=== PATIENT | male | born 1985 | race Caucasian/White ===

== ENCOUNTER 2019-02-20 11:35 | Emergency (ER) | payer OTHER ==
[~2019-02-20] VITALS: Ht 172.7 cm; Wt 98.3 kg
[2019-02-20 12:33] LABS: BASO % 0.6 % (0.0-1.0); EOS # 0.1 10^3/uL (0.0-0.5); EOS % 0.9 % (0.0-3.0); HEMATOCRIT 43.9 % (42.0-52.0); HEMOGLOBIN 14.8 g/dl (13.5-17.5); LYMPH # 1.7 10^3/uL (1.5-5.0); MEAN CORPUSCULAR HEMOGLOBIN 30.8 pg (27.0-33.0); MEAN CORPUSCULAR HGB CONC 33.7 g/dl (32.0-36.5); MEAN CORPUSCULAR VOLUME 91.5 fl (80.0-96.0); MONO # 0.6 10^3/uL (0.0-0.8); NEUTROPHILS # 4.4 10^3/uL (1.5-8.5); NEUTROPHILS % 63.9 % (36.0-66.0); PLATELET COUNT, AUTOMATED 222 10^3/uL (150-450); WHITE BLOOD COUNT 6.9 10^3/uL (4.0-10.0)
[2019-02-20 13:01] LABS: ALBUMIN 4.1 GM/DL (3.2-5.2); ALT/SGPT 37 U/L (12-78); BILIRUBIN,DIRECT 0.1 MG/DL (0.0-0.2); BILIRUBIN,TOTAL 0.6 MG/DL (0.2-1.0); BLOOD UREA NITROGEN 15 MG/DL (7-18); CALCIUM LEVEL 9.2 MG/DL (8.5-10.1); CARBON DIOXIDE LEVEL 27 MEQ/L (21-32); CHLORIDE LEVEL 106 MEQ/L (98-107); CREATININE FOR GFR 0.86 MG/DL (0.70-1.30); GLOMERULAR FILTRATION RATE > 60.0 (>60); GLUCOSE, FASTING 91 MG/DL (70-100); LIPASE 526 U/L (73-393); POTASSIUM SERUM 4.2 MEQ/L (3.5-5.1); SODIUM LEVEL 142 MEQ/L (136-145); TOTAL PROTEIN 7.5 GM/DL (6.4-8.2)
[2019-02-20] MEDS ORDERED: ISOVUE-370 76% 100ML VIAL (Q9967) As Ordered ONE (13:04)
--- NOTE | 2019-02-20 13:38 | REP ---
CT of the abdomen and pelvis with IV contrast, without bowel contrast: The patient is a history of diverticulitis and complains of left lower quadrant pain. There are no comparison studies. There are multiple diverticula in the descending colon and sigmoid colon compatible with diverticulosis. There is no pericolonic inflammation or abscess to suggest diverticulitis. There is no pneumoperitoneum. There is no ascites. There is no bowel distension or obstruction. The visualized lung lora are unremarkable. The hepatic parenchyma, gallbladder, pancreas, spleen, adrenals, kidneys and abdominal aorta are unremarkable. Pelvis: The appendix is unremarkable. There is no ascites or adenopathy. The bladder is unremarkable. Impression: There is descending colon and sigmoid diverticulosis. There is no CT evidence of diverticulitis. There is no adenopathy, ascites or pneumoperitoneum. Otherwise, negative CT study of the abdomen and pelvis. Electronically Signed by Johann Dorman MD 02/20/2019 01:29 P
[2019-02-20 14:18] VITALS: BP 117/88
== END 2019-02-20 14:20 | disposition home or self-care (01) ==
LOC: M ED 11:35
DX: K52.9 Noninfective gastroenteritis and colitis, unspecified (principal); K57.30 Diverticulosis of large intestine without perforation or abscess without bleeding; K57.32 Diverticulitis of large intestine without perforation or abscess without bleeding
CPT/HCPCS: 36415; 74177; 80048; 80076; 83690; 85025; 99284; Q9967

== ENCOUNTER → 2020-07-30 | Outpatient (CLI) | payer OTHER ==
--- NOTE | 2020-07-30 13:16 | REP ---
INDICATION: THYROID NODULE COMPARISON: None. TECHNIQUE: Carey scale and color evaluation of the thyroid gland using the linear high frequency transducer. FINDINGS: Thyroid gland is diffusely heterogeneous with relatively symmetric vascularity. Right lobe measures 4.9 x 2.0 x 2.0 cm. Left lobe measures 4.8 x 1.9 x 1.7 cm and includes subtle 9 x 7 x 9 mm midpole isoechoic nodule. Isthmus measures 10 mm in width. IMPRESSION: 1. Diffusely heterogeneous thyroid gland should be correlated with thyroid function tests. 2. Vague 9 mm isoechoic nodule in the left lobe suggested. <Electronically signed by Dayo Decker > 07/30/20 1318
== END ==
LOC: M RAD 12:15
PROVIDERS: ATTEND Pediatrics
DX: Z86.39 Personal history of other endocrine, nutritional and metabolic disease (principal)

== ENCOUNTER 2021-04-15 06:37 | Emergency (ER) | payer OTHER ==
[~2021-04-15] VITALS: Ht 177.8 cm; Wt 118.0 kg
[2021-04-15 06:39] VITALS: BP 135/87
--- OUTSIDE RECORDS SUMMARY | 2021-04-15 06:52 | CCD ---
Author Author [facility] Organization [facility] Address Unknown Phone Unavailable Care Team Providers Care Hoop Maker Name Role Phone Stefania, Kenya Unavailable Unavailable Stefania, Kenya Unavailable Unavailable Stefania, Kenya Unavailable Unavailable Stefania, Kenya Unavailable Unavailable Stefania, Kenya Unavailable Unavailable Stefania, Kenya Unavailable Unavailable Stefania, Kenya Unavailable Unavailable Stefania, Kenya Unavailable Unavailable Stefania, Kenya Unavailable Unavailable Stefania, Kenya Unavailable Unavailable Stefania, Kenya Unavailable Unavailable Stefania, Kenya Unavailable Unavailable Stefania, Kenya Unavailable Unavailable Stefania, Kenya Unavailable Unavailable Stefania, Kenya Unavailable Unavailable Stefania, Kenya Unavailable Unavailable Stefania, Kenya Unavailable Unavailable Stefania, Kenya Unavailable Unavailable Stefania, Kenya Unavailable Unavailable Stefania, Kenya Unavailable Unavailable Setfania, Kenya Unavailable Unavailable Stefania, Kenya Unavailable Unavailable Stefania, Kenya Unavailable Unavailable Stefania, Kenya Unavailable Unavailable Stefania, Kenya Unavailable Unavailable Stefania, Kenya Unavailable Unavailable Stefania, Kenya Unavailable Unavailable Diaz Ricci PA-C Unavailable Diaz Ricci-C Unavailable Diaz Ricci PA-C Unavailable Diaz Ricci PA-C Unavailable Diaz Ricci PA-C Unavailable NEEDED NEEDED, INFO Unavailable Unavailable Holley, W Herve RPA-C Unavailable Unavailable Holley, W Herve RPA-C Unavailable Unavailable Holley, W Herve RPA-C Unavailable Unavailable Holley, W Herve RPA-C Unavailable Unavailable Holley, W Herve RPA-C Unavailable Unavailable Holley, W Herve RPA-C Unavailable Unavailable Holley, W Herve RPA-C Unavailable Unavailable Holley, W Herve RPA-C Unavailable Unavailable Holley, W Herve RPA-C Unavailable Unavailable Holley, W Herve RPA-C Unavailable Unavailable Holley, W Herve RPA-C Unavailable Unavailable Holley, W Herve RPA-C Unavailable Unavailable Holley, W Herve RPA-C Unavailable Unavailable Holley, W Herve RPA-C Unavailable Unavailable Holley, W Herve RPA-C Unavailable Unavailable Holley, W Herve RPA-C Unavailable Unavailable Holley, W Herve RPA-C Unavailable Unavailable ISAIAH, DONNIE COURTNEY PA Unavailable Unavailable ISAIAH, DONNIE COURTNEY PA Unavailable Unavailable ISAIAH, DONNIE COURTNEY PA Unavailable Unavailable ISAIAH, DONNIE COURTNEY PA Unavailable Unavailable ISAIAH, DONNIE COURTNEY PA Unavailable Unavailable ISAIAH, DONNIE COURTNEY PA Unavailable Unavailable ISAIAH, DONNIE COURTNEY PA Unavailable Unavailable ISAIAH, DONNIE COURTNEY PA Unavailable Unavailable ISAIAH, DONNIE COURTNEY PA Unavailable Unavailable ISAIAH, DONNIE COURTNEY PA Unavailable Unavailable ISAIAH, DONNIE COURTNEY PA Unavailable Unavailable ISAIAH, DONNIE COURTNEY PA Unavailable Unavailable ISAIAH, DONNIE COURTNEY PA Unavailable Unavailable ISAIAH, DONNIE COURTNEY PA Unavailable Unavailable ISAIAH, DONNIE COURTNEY PA Unavailable Unavailable ISAIAH, DONNIE COURTNEY PA Unavailable Unavailable ISAIAH, DONNIE COURTNEY PA Unavailable Unavailable ISAIAH, DONNIE COURTNEY PA Unavailable Unavailable ISAIAH, DONNIE COURTNEY PA Unavailable Unavailable ISAIAH, DONNIE COURTNEY PA Unavailable Unavailable ISAIAH, DONNIE COURTNEY PA Unavailable Unavailable ISAIAH, DONNIE COURTNEY PA Unavailable Unavailable Re-disclosure Warning The records that you are about to access may contain information from federally-assisted alcohol or drug abuse programs. If such information is present, then the following federally mandated warning applies: This information has been disclosed to you from records protected by federal confidentiality rules (42 CFR part 2). The federal rules prohibit you from making any further disclosure of this information unless further disclosure is expressly permitted by the written consent of the person to whom it pertains or as otherwise permitted by 42 CFR part 2. A general authorization for the release of medical or other information is NOT sufficient for this purpose. The Federal rules restrict any use of the information to criminally investigate or prosecute any alcohol or drug abuse patient.The records that you are about to access may contain highly sensitive health information, the redisclosure of which is protected by Article 27-F of the [facility] Public Health law. If you continue you may have access to information: Regarding HIV / AIDS; Provided by facilities licensed or operated by the [facility] Office of Mental Health; or Provided by the [facility] Office for People With Developmental Disabilities. If such information is present, then the following [facility] mandated warning applies: This information has been disclosed to you from confidential records which are protected by state law. State law prohibits you from making any further disclosure of this information without the specific written consent of the person to whom it pertains, or as otherwise permitted by law. Any unauthorized further disclosure in violation of state law may result in a fine or residential sentence or both. A general authorization for the release of medical or other information is NOT sufficient authorization for further disc losure. Encounters Encounter Providers Location Date Indications Data Source(s ) Emergency Attender: Diaz Ricci PA-C 04/07/2021 09:58:00 A [facility] Emergency Attender: Diaz Ricci PA-C 2020 06:50:00 AM EDT - 09/30/2020 07:00:00 AM [facility] Patient discharged. Denise Aguiar MD: [address] [place] [address], Ph. Attender: Denise Aguiar [facility] 07/28/2020 12:00:00 AM EST LAZ ([facility]) Denise Aguiar MD: [address] [place] [address], Ph. Attender: Denise Aguiar [facility] 07/28/2020 12:00:00 AM EST LAZ ([facility]) Outpatient Attender: Denise AguiarAttender: JEREMY ADORNO NEEDED EMERGENCY ROOM-[facility] 07/10/2020 07:26:00 AM [facility] 07/10/2020 07:26:00 AM [facility] Denise Aguiar MD: [address], [facility] [place] [address], Ph. Attender: Denise Aguiar [facility] [place]/07/2020 12:00:00 AM EST LAZ ([facility]) Denise Aguiar MD: [address], [place] [place] [address], Ph. Attender: [place]uiar [facility] [place]/07/2020 12:00:00 AM EST [place] ([facility]) Denise Aguiar MD: [address], [place] [address], Ph. Attender: Denise Aguiar [facility] 07/07/2020 12:00:00 AM EST LAZ ([facility]) Denise Aguiar MD: [address], [facility] [place] [address], Ph. Attender: Denise Aguiar [facility] 07/07/2020 12:00:00 AM EST LAZ ([facility]) Emergency Attender: Herve MENDEZ EMERGENCY ROOM-ER 0 01/27/2018 04:22:00 PM EDT - 01/27/2018 09:17:00 PM [facility] Emergency Attender: COURTNEY ISABEL 06:58:00 PM EDT - 12/31/2016 06:58:00 PM [facility] Medications Medication Brand Name Start Date Product Form Dose Route Admi nistrative Instructions Pharmacy Instructions Status Indications Reaction Description Data Source(s) Amoxicillin 875 MG / Clavulanate 125 MG Oral Tablet 87 5-125 mg AMOXICILLIN/POTASSIUM CLAV 09/30/2020 12:00:00 AM EDT tablet 20 TAKE ONE TABLET BY MOUTH TWICE A DAY TAKE ONE TABLET BY MOUTH TWICE A DAY SOLD: 10/01/2020 [facility] atorvastatin 20 MG Oral Tablet ATORVASTATIN CALCIUM 07/28/2020 1 2:00:00 AM EST tablet 30 TAKE ONE TABLET BY MOUTH EVERY D AY TAKE ONE TABLET BY MOUTH EVERY DAY SOLD: 08/04/2020 [facility] atorvastatin 20 MG Oral Tablet ATORVASTATIN CALCIUM 07/28/2020 1 2:00:00 AM EST tablet 30 TAKE ONE TABLET BY MOUTH EVERY D AY TAKE ONE TABLET BY MOUTH EVERY DAY SOLD: 10/06/2020 [facility] 50 mcg 07/28/2020 12:00:00 AM EST tablet 30 TAKE ONE TABLET BY MOUTH EVERY DAY TAKE ONE TABLET BY MOUTH EVERY DAY SOLD: 10/06/2020 [facility] 50 mcg 07/28/2020 12:00:00 AM EST tablet 30 TAKE ONE TABLET BY MOUTH EVERY DAY TAKE ONE TABLET BY MOUTH EVERY DAY SOLD: 08/04/2020 [facility] Insurance Providers Payer name Policy type / Coverage type Policy ID Covered green party ID Covered green party's relationship to morejon Policy Morejon Plan Information RAEANN [id number] SP [id number] RAEANN CARE MEDICAID [id number] S [id number] SELF PAY UNAVAILABLE S UNAVAILA BLE RAEANN CARE MEDICAID [id number] S [id number] Managed Care [place] P [id number] S [id number] Medicaid S [id number] S [id number] Managed Care [place] P UNAVAILABLE S UNAVAILABLE AREANN CARE [facility] [id number] S [id number] RAEANN [id number] SP [id number] SELF-PAY UNAVAILABLE S UNAVAILA BLE Problems, Conditions, and Diagnoses Code Display Name Description Problem Type Effective Dates Data Source(s) Y93.89 Activity, other specified ACTIVITY, OTHER SPECIFIED Di agnosis 09/30/2020 06:50:00 AM [facility] Y99.0 Civilian activity done for income or pay CIVILIAN ACTIVITY DONE FOR INCOME OR PAY Diagnosis 09/30/2020 06:50:00 AM [facility] Y92.89 [address] the place of o ccurrence of the external cause OTH PLACES THE PLACE OF OCCURRENCE OF THE EXTER Diagnosis 10/2020 06:50:00 AM [facility] W26.8XXA CONTACT WITH OTHER SHARP OBJECT(S), NEC, INITIAL E CONTACT WITH OTHER SHARP OBJECT(S), NEC, INITIAL E Diagnosis 09/30/2020 06:50:00 AM [facility] F17.210 Nicotine dependence, cigarettes, uncompl icated NICOTINE DEPENDENCE, CIGARETTES, UNCOMPLICATED Diagnosis 09/30/2020 06:50:00 AM 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 NON-CELIAC GLUTEN SENSIT IVITY Diagnosis 07/10/2020 07:26:00 AM [facility] [id number] Tobacco user Tobacco User Problem 07/28/2020 12:00:00 A M [facility]) [id number] Hyperlipidemia Hyperlipidemia Problem 07/28/2020 12:00: 00 AM [facility]) [id number] Tobacco user Tobacco User Problem 07/28/2020 12:00:00 A M [facility]) [id number] Hyperlipidemia Hyperlipidemia Problem 07/28/2020 12:00: 00 AM [facility]) [id number] Right side sciatica Right Side Sciatica Problem 07/07/2020 12:00:00 AM [facility]) [id number] Gluten sensitivity Gluten Sensitivity Problem 02/2021 12:00:00 AM [facility] er) [id number] Disorder of thyroid gland Disorder of Thyroid Gland Pr oblem 07/07/2020 12:00:00 AM EST LAZ ([facility] er) [id number] Goiter Goiter Problem 07/07/2020 12:00:00 AM ES Jae LAZ ([facility]) [id number] Right side sciatica Right Side Sciatica Problem 07/07/2020 12:00:00 AM EST LAZ ([facility] er) [id number] Gluten sensitivity Gluten Sensitivity Problem 02/2021 12:00:00 AM EST LAZ ([facility] er) 15715380 Disorder of thyroid gland Disorder of Thyroid Gland Pr oblem 07/07/2020 12:00:00 AM EST LAZ ([facility] er) [id number] Goiter Goiter Problem 07/07/2020 12:00:00 AM ES T LAZ ([facility]) [id number] Right side sciatica Right Side Sciatica Problem 07/07/2020 12:00:00 AM EST LAZ ([facility] er) 093927490 Gluten sensitivity Gluten Sensitivity Problem 02/2021 12:00:00 AM EST LAZ ([facility] er) [id number] Disorder of thyroid gland Disorder of Thyroid Gland Pr oblem 07/07/2020 12:00:00 AM EST LAZ ([facility] er) 4014145 Goiter Goiter Problem 07/07/2020 12:00:00 AM TIGRE Rowe LAZ ([facility]) [id number] Right side sciatica Right Side Sciatica Problem 07/07/2020 12:00:00 AM EST LAZ ([facility] er) [id number] Gluten sensitivity Gluten Sensitivity Problem 02/2021 12:00:00 AM EST LAZ ([facility] er) [id number] Disorder of thyroid gland Disorder of Thyroid Gland Pr oblem 07/07/2020 12:00:00 AM EST LAZ ([facility] er) [id number] Goiter Goiter Problem 07/07/2020 12:00:00 AM ES Jae LAZ ([facility]) Surgeries/Procedures No Information Results ID Date Data Source [id number] 10/02/2020 09:39:00 AM EDT [facility] Patient: GLENROY COYLE [facility]VisitID: [id number] [place] [address] [phone], MRegistration Date/Time: 09/30/2020 06:32 Weight:104.3 kg (S). Height/Length:69 inches (S). BMI:34 PAST HISTORYProblems:Diverticulitis. Additional Surgeries:no known surgeries. Medications:None. Allergies:No Known Drug Allergy. FAMILY HISTORYNegative. No significant family medical history. (Electronically signed by Carmen Pan 10/02/2020 09:34) Name Value Range Interpretation Code Description Data Sherin rce(s) Supporting Document(s) ID Date Data Source [id number] 07/16/2020 06:05:00 PM EST [facility] Name Value Range Interpretation Code Description Data Sherin rce(s) Supporting Document(s) Endomysial Antibody IgA Negative Negative [facility] t-Transglutaminase (tTG) IgA 0-3 [facility] Negative 0 - 3 Weak Positive 4 - 10 Positive >10 Tissue Transglutaminase (tTG) has been identified as the endomysial antigen. Studies have demonstr- ated that endomysial IgA antibodies have over 99% specificity for gluten sensitive enteropathy. Immunoglobulin A, Qn, Serum 304 mg/dL 90-386 [facility] ID Date Data Source [id number] 07/12/2020 06:09:00 PM EST [facility] Name Value Range Interpretation Code Description Data Sherin rce(s) Supporting Document(s) T-TRANSGLUTAMINASE (TTG) IGA <2 U/mL 0-3 R [facility] Negative 0 - 3 Weak Positive 4 - 10 Positive >10 Tissue Transglutaminase (tTG) has been identified as the endomysial antigen. Studies have demonstr- ated that endomysial IgA antibodies have over 99% specificity for gluten sensitive enteropathy. ENDOMYSIAL ANTIBODY IGA Negative Negative [facility] IMMUNOGLOBULIN A, QN, SERUM 304 mg/dL 90-386 [facility] Performed at: RN - [facility] [address] [id number] Director: Shelby Beyer MD, Phone: [phone] ID Date Data Source [id number] 07/10/2020 10:12:00 AM EST [facility] FA[facility] [phone] Name Value Range Interpretation Code Description Data Sherin rce(s) Supporting Document(s) TSH 7.123 uIU/mL 0.360-3.740 H [facility] ID Date Data Source [id number] 07/10/2020 08:21:00 AM EST [facility] [phone] Name Value Range Interpretation Code Description Data Sherin rce(s) Supporting Document(s) CHOLESTEROL 207 mg/dL 0-200 H [facility] TRIGLYCERIDES 24 mg/dL 0-150 [facility] LDL CHOLESTEROL 157 mg/dL 0-100 H [facility] HDL CHOLESTEROL 45 mg/dL 40-60 [facility] CHOL/HDL RATIO 4.6 0.0-5.0 [facility] ID Date Data Source [id number] 07/10/2020 08:21:00 AM [facility] FAX [phone] Name Value Range Interpretation Code Description Data [facility] rce(s) Supporting Document(s) GLUCOSE 102 mg/dL 74-106 [facility] BLOOD UREA NITROGEN 24 mg/dL 7-18 H [facility] ital CREATININE 0.76 mg/dL 0.7-1.3 [facility] SODIUM 138 mmol/L 136-145 [facility] POTASSIUM 4.9 mmol/L 3.5-5.1 [facility] CHLORIDE 103 mmol/L 98-107 [facility] CO2 30 mmol/L 21-32 [facility] CALCIUM 9.1 mg/dL 8.5-10.1 [facility] ANION GAP 5.0 mmol/L 5-12 [facility] GLOMERULAR FILTRATION RATE >90 mL/min [facility] GFR IS CALCULATED IN mL/min/1.73m2 GLADYS L FUNCTION: >90MILDLY DECREASED: 60-89MILDY TO MODERATELY DECREASED: 45-59 MODERATELY TO SEVERELY DECREASED: 30-44SEVERELY DECREASED: 15-29RENAL FAILURE: <15 AST 30 U/L 15-37 [facility] ALT 47 U/L 12-78 [facility] ALKALINE PHOSPHATASE 56 U/L 46-116 [facility] pital TOTAL BILIRUBIN 0.4 mg/dL 0.2-1.0 [facility] TOTAL PROTEIN 7.5 g/dl 6.4-8.2 [facility] ALBUMIN 4.1 gm/dL 3.4-5.0 [facility] ID Date Data Source [id number] 07/10/2020 07:59:00 AM EST [facility] FAX [phone] Name Value Range Interpretation Code Description Data Sherin rce(s) Supporting Document(s) WHITE BLOOD COUNT 4.7 K/mm3 4.0-10.[address] [facility] al RED BLOOD COUNT 4.65 M/mm3 4.50-6.00 [facility] HEMOGLOBIN 14.0 gm/dL 14.0-18.0 [facility] HEMATOCRIT 41.1 % 42.0-54.0 L [facility] MEAN CELL VOLUME 88.4 fl 80-96 [facility] MEAN CORPUSCULAR HEMOGLOBIN 30.1 pg 27.0-31.0 [facility] MEAN CORPUSCULAR HGB CONC 34.1 g/dl 32.0-36.0 [facility] RED CELL DISTRIBUTION WIDTH 12.6 % 10.0-14.5 [facility] PLATELET COUNT 218 K/mm3 172-450 [facility] MEAN PLATELET VOLUME 8.8 fl 9.0-13.0 L [facility] pital GRAN % 54.8 % 50-80.0 [facility] IG% 0.2 % 0.0-0.2 [facility] LYMPH % 35.0 % 25.0-50.0 [facility] MONO % 8.3 % 2.0-10.0 [facility] EOS % 1.1 % 0-5.0 [facility] BASO % 0.6 % 0.0-2.0 [facility] GRAN # 2.6 K/mm3 2.0-8.00 [facility] IG# 0.0 K/mm3 0.0-0.2 [facility] LYMPH # 1.7 K/mm3 1.0-5.0 [facility] MONO # 0.4 K/mm3 0.10-1.20 [facility] EOS # 0.1 K/mm3 0.0-0.5 [facility] BASO # 0.0 K/mm3 0.0-0.2 [facility] Procedure Social History No Information Vital Signs ID Date Data Source UNK Name Value Range Interpretation Code Description Data Source(s) Diastolic blood pressure 87 mm[Hg] 87 mm[Hg] LAZ ([facility]) Body height 69 [in_i] 69 [in_i] LAZ ([facility]) Body mass index (BMI) [Ratio] 33 kg/m2 33 kg/ m2 LAZ ([facility]) Systolic blood pressure 147 mm[Hg] 147 mm[Hg] A JASMIN ([facility]) Body weight 3571 [oz_av] 3571 [oz_av] LAZ ([facility]) Diastolic blood pressure 87 mm[Hg] 87 mm[Hg] LAZ ([facility]) Body height 69 [in_i] 69 [in_i] LAZ ([facility]) Body mass index (BMI) [Ratio] 33 kg/m2 33 kg/ m2 LAZ ([facility]) Systolic blood pressure 147 mm[Hg] 147 mm[Hg] A JASMIN ([facility]) Body weight 3571 [oz_av] 3571 [oz_av] LAZ ([facility]) Diastolic blood pressure 70 mm[Hg] 70 mm[Hg] LAZ ([facility]) Body height 69 [in_i] 69 [in_i] LAZ ([facility]) Body mass index (BMI) [Ratio] 32.8 kg/m2 32.8 k g/m2 LAZ ([facility]) Systolic blood pressure 117 mm[Hg] 117 mm[Hg] A JASMIN ([facility]) Body weight 3555.2 [oz_av] 3555.2 [oz_av] ATHEN A ([facility]) Diastolic blood pressure 70 mm[Hg] 70 mm[Hg] LAZ ([facility]) Body height 69 [in_i] 69 [in_i] LAZ ([facility]) Body mass index (BMI) [Ratio] 32.8 kg/m2 32.8 k g/m2 LAZ ([facility]) Systolic blood pressure 117 mm[Hg] 117 mm[Hg] A SANGA ([facility]) Body weight 3555.2 [oz_av] 3555.2 [oz_av] ATHEN A ([facility]) Diastolic blood pressure 70 mm[Hg] 70 mm[Hg] LAZ ([facility]) Body height 69 [in_i] 69 [in_i] LAZ ([facility]) Body mass index (BMI) [Ratio] 32.8 kg/m2 32.8 k g/m2 LAZ ([facility]) Systolic blood pressure 117 mm[Hg] 117 mm[Hg] [facility] Body weight 3555.2 [oz_av] 3555.2 [oz_av] ATHRODRIGO A ([facility]) Body weight 3555.2 [oz_av] 3555.2 [oz_av] ATHEN A ([facility]) Diastolic blood pressure 70 mm[Hg] 70 mm[Hg] LAZ ([facility]) Body height 69 [in_i] 69 [in_i] LAZ ([facility]) Body mass index (BMI) [Ratio] 32.8 kg/m2 32.8 k g/m2 LAZ ([facility]) Systolic blood pressure 117 mm[Hg] 117 mm[Hg] A SANG ([facility])
--- OUTSIDE RECORDS SUMMARY | 2021-04-15 08:26 | CCD ---
Author Author [facility] Organization [facility] Address Unknown Phone Unavailable Care Team Providers Care Endoscopy Support Specialist Name Role Phone Stefania, [place] Unavailable Unavailable [...] Ricci PA-C Unavailable Diaz Ricci PA-C Unavailable INFO NEEDED, INFO Unavailable Unavailable Holley, W Herve [...] is protected by Article 27-F of the [facility] Public Health law. If you continue you may have access to information: Regarding HIV / AIDS; Provided by facilities licensed or operated by the [facility] Office of Mental Health; or Provided by the [facility] Office for People With Developmental Disabilities. If such information is present, then the following [facility] mandated warning applies: This information has been [...] law may result in a fine or snf sentence or both. A general authorization for the release of medical or other information is NOT sufficient authorization for further disc losure. Encounters Encounter Providers Location Date Indications Data Source(s ) Emergency Attender: Diaz Ricci PA-C 04/07/2021 09:58:00 A [facility] Emergency Attender: Diaz Ricci PA-C 2020 06:50:00 AM EDT - 09/30/2020 07:00:00 AM [facility] Patient discharged. Denise Aguiar MD: [address] [place] [address], Ph. Attender: Denise Aguiar [facility] Medical 07/28/2020 12:00:00 AM EST LAZ ([facility]) Denise Aguiar MD: [address] [place] [address], Ph. Attender: Denise Aguiar [facility] Medical 07/28/2020 12:00:00 AM EST LAZ ([facility]) Outpatient Attender: Denise AguiarAttender: INFO I NFO NEEDED EMERGENCY ROOM-[facility] 07/10/2020 07:26:00 AM [facility] 07/10/2020 07:26:00 AM [facility] Denise Aguiar MD: [address], [place] [facility] [place] [address], Ph. Attender: Denise Aguiar [facility] 07/07/2020 12:00:00 AM EST LAZ ([facility]) Denise Aguiar MD: [address], [facility] [facility] [place] [address], Ph. Attender: Denise Aguiar [facility] 07/07/2020 12:00:00 AM EST MORSE ([facility]) Denise Aguiar MD: [address], [place] [facility] [place] [address], Ph. Attender: Denise Aguiar [facility] 07/07/2020 12:00:00 AM EST LAZ ([facility]) Denise Aguiar MD: [address], [place] [address], Ph. Attender: Denise Aguiar [facility] 07/07/2020 12:00:00 AM EST [place] ([facility]) Emergency Attender: Herve MENDEZ EMERGENCY ROOM-ER 0 01/27/2018 04:22:00 PM EDT - 01/27/2018 09:17:00 PM [facility] Emergency Attender: COURTNEY ISABEL 06:58:00 PM EDT - 12/31/2016 06:58:00 PM [facility] Medications Medication Brand Name Start Date [...] type / Coverage type Policy ID Covered democrat ID Covered democrat's relationship to morejon Policy [place] Plan Information RAEANN [id number] SP [id number] RAEANN CARE MEDICAID [id number] S [id number] SELF PAY UNAVAILABLE S UNAVAILA BLE RAEANN CARE MEDICAID [id number] S [id number] Managed Care [place] P [id number] S [id number] Medicaid S [id number] S [id number] Managed [facility] [place] P UNAVAILABLE S UNAVAILABLE [facility]AEANN CARE [facility] [id number] S [id number] RAEANN [id number] SP [id number] SELF-PAY UNAVAILABLE S UNAVAILA BLE Problems, Conditions, and Diagnoses Code Display Name Description Problem Type Effective Dates Data Source(s) Y93.89 Activity, other specified ACTIVITY, OTHER SPECIFIED Di agnosis 09/30/2020 06:50:00 AM [facility] Y99.0 Civilian activity done for income or pay CIVILIAN ACTIVITY DONE FOR INCOME OR PAY Diagnosis 09/30/2020 06:50:00 AM [facility] Y92.[address] the place of o ccurrence of the external cause OTH PLACES THE PLACE OF OCCURRENCE OF THE EXTER Diagnosis 10/2020 06:50:00 AM [facility] W26.8XXA CONTACT WITH OTHER SHARP OBJECT(S), NEC, INITIAL E CONTACT WITH OTHER SHARP OBJECT(S), NEC, INITIAL E Diagnosis 09/30/2020 06:50:00 AM [facility] F17.210 Nicotine dependence, cigarettes, uncompl icated NICOTINE DEPENDENCE, CIGARETTES, UNCOMPLICATED Diagnosis 09/30/2020 06:50:00 AM [facility] ospital S91.115A Laceration without foreign b tomás of left lesser toe(s) without damage to nail, initial encounter LAC W/O FB OF LEFT LESSER TOE(S) W/O DAMAGE TO JENNIFER Diagnosis 09/30/2020 06:50:00 AM [facility] S99.922A Unspecified injury of left foot, initial encounter UNSPECIFIED INJURY OF LEFT FOOT, INITIAL ENCOUNTER Diagnosis 09/30/2020 06:50:00 AM [facility] Z13.220 Encounter for screening for lipoid disor ders ENCOUNTER FOR SCREENING FOR LIPOID DISOR Diagnosis 07/10/2020 07:26:00 AM [facility] 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 NON-CELIAC GLUTEN SENSIT IVITY Diagnosis 07/10/2020 07:26:00 AM [facility] [id number] Tobacco user Tobacco User Problem 07/28/2020 12:00:00 A M [facility]) [id number] Hyperlipidemia Hyperlipidemia Problem 07/28/2020 12:00: 00 AM [facility]) [id number] Tobacco user Tobacco User Problem 07/28/2020 12:00:00 A M [facility]) [id number] Hyperlipidemia Hyperlipidemia Problem 07/28/2020 12:00: 00 AM [facility]) [id number] Right side sciatica Right Side Sciatica Problem 07/07/2020 12:00:00 AM [facility] er) [id number] Gluten sensitivity Gluten Sensitivity Problem 02/2021 12:00:00 AM [facility] er) 64406517 Disorder of thyroid gland Disorder of Thyroid Gland Pr oblem 07/07/2020 12:00:00 AM EST LAZ ([facility] er) 1470089 Goiter Goiter Problem 07/07/2020 12:00:00 AM ES Jae LAZ ([facility]) [id number] Right side sciatica Right Side Sciatica Problem 07/07/2020 12:00:00 AM EST LAZ ([facility] er) [id number] Gluten sensitivity Gluten Sensitivity Problem 02/2021 12:00:00 AM EST LAZ ([facility] er) 36414890 Disorder of thyroid gland Disorder of Thyroid Gland Pr oblem 07/07/2020 12:00:00 AM EST LAZ ([facility] er) 5370642 Goiter Goiter Problem 07/07/2020 12:00:00 AM ES T LAZ ([facility]) [id number] Right side sciatica Right Side Sciatica Problem 07/07/2020 12:00:00 AM EST LAZ ([facility] er) 282142312 Gluten sensitivity Gluten Sensitivity Problem 02/2021 12:00:00 AM EST LAZ ([facility] er) 45072460 Disorder of thyroid gland Disorder of Thyroid Gland Pr oblem 07/07/2020 12:00:00 AM EST LAZ ([facility] er) 1299193 Goiter Goiter Problem 07/07/2020 12:00:00 AM TIGRE Rowe LAZ ([facility]) [id number] Right side sciatica Right Side Sciatica Problem 07/07/2020 12:00:00 AM EST LAZ ([facility] er) [id number] Gluten sensitivity Gluten Sensitivity Problem 02/2021 12:00:00 AM EST LAZ ([facility] er) 00185062 Disorder of thyroid gland Disorder of Thyroid Gland Pr oblem 07/07/2020 12:00:00 AM EST LAZ ([facility] er) 5378717 Goiter Goiter Problem 07/07/2020 12:00:00 AM ES Jae LAZ ([facility]) Surgeries/Procedures No Information Results ID Date Data Source [id number] 10/02/2020 09:39:00 AM EDT [facility] Patient: GLENROY COYLE [facility].VisitID: [id number] [place] [address] [phone], MRegistration Date/Time: 09/30/2020 06:32 Weight:104.3 kg (S). Height/Length:69 inches (S). BMI:34 PAST HISTORYProblems:Diverticulitis. Additional Surgeries:no known surgeries. Medications:None. Allergies:No Known Drug Allergy. FAMILY HISTORYNegative. No significant family medical history. (Electronically signed by Carmen Pan 10/02/2020 09:34) Name Value Range Interpretation Code Description Data Sherin rce(s) Supporting Document(s) ID Date Data Source [id number] 07/16/2020 06:05:00 PM EST [facility] Name Value [...] [id number] [facility] ID Date Data Source [id number] 07/12/2020 06:09:00 PM EST [facility] Name Value Range Interpretation Code Description Data Sherin rce(s) Supporting Document(s) T-TRANSGLUTAMINASE (TTG) IGA <2 U/mL 0-3 R [facility] Negative 0 - 3 Weak Positive 4 - 10 Positive >10 Tissue Transglutaminase (tTG) has been identified as the endomysial antigen. Studies have demonstr- ated that endomysial IgA antibodies have over 99% specificity for gluten sensitive enteropathy. ENDOMYSIAL ANTIBODY IGA Negative Negative [facility] IMMUNOGLOBULIN A, QN, SERUM 304 mg/dL 90-386 [facility] Performed at: RN - [facility] [address] [id number] Director: Shelby Beyer MD, Phone: [phone] ID Date Data Source [id number] 07/10/2020 10:12:00 AM EST [facility] FA[facility] [phone] Name Value Range Interpretation Code Description Data Sherin rce(s) Supporting Document(s) TSH 7.123 uIU/mL 0.360-3.[address] [facility] ID Date Data Source [id number] 07/10/2020 08:21:00 AM EST [facility] FAX [phone] Name Value Range Interpretation Code Description Data Sherin rce(s) Supporting Document(s) CHOLESTEROL 207 mg/dL 0-[address] [facility] TRIGLYCERIDES 24 mg/dL 0-150 [facility] LDL CHOLESTEROL 157 mg/dL 0-[address] [facility] HDL CHOLESTEROL 45 mg/dL 40-60 [facility] CHOL/HDL RATIO 4.6 0.0-5.0 [facility] ID Date Data Source [id number] 07/10/2020 08:21:00 AM [facility] FA[facility] [phone] Name Value Range Interpretation Code Description Data [facility] rce(s) Supporting Document(s) GLUCOSE 102 mg/dL 74-106 [facility] BLOOD UREA NITROGEN 24 mg/dL 7-18 H [facility] ital CREATININE 0.76 mg/dL 0.7-1.3 [facility] SODIUM 138 mmol/L 136-145 [facility] POTASSIUM 4.9 mmol/L 3.5-5.1 [facility] CHLORIDE 103 mmol/L 98-107 [facility] CO2 30 mmol/L 21-32 [facility] CALCIUM 9.1 mg/dL 8.5-10.1 [facility] ANION GAP 5.0 mmol/L 5-12 [facility] GLOMERULAR FILTRATION RATE >90 mL/min [facility] GFR IS CALCULATED IN mL/min/1.73m2 GLADYS L FUNCTION: >90MILDLY DECREASED: 60-89MILDY TO MODERATELY DECREASED: 45-59 MODERATELY TO SEVERELY DECREASED: 30-44SEVERELY DECREASED: 15-29RENAL FAILURE: <15 AST 30 U/L 15-37 [facility] ALT 47 U/L 12-78 [facility] ALKALINE PHOSPHATASE 56 U/L 46-116 [facility] pital TOTAL BILIRUBIN 0.4 mg/dL 0.2-1.0 [facility] TOTAL PROTEIN 7.5 g/dl 6.4-8.2 [facility] ALBUMIN 4.1 gm/dL 3.4-5.0 [facility] ID Date Data Source [id number] 07/10/2020 07:59:00 AM EST [facility] FAX [phone] Name Value Range Interpretation Code Description Data Sherin rce(s) Supporting Document(s) WHITE BLOOD COUNT 4.7 K/mm3 4.0-10.0 [facility] al RED BLOOD COUNT 4.65 M/mm3 4.50-6.00 [facility] HEMOGLOBIN 14.0 gm/dL 14.0-18.0 [facility] HEMATOCRIT 41.1 % 42.0-54.[address] [facility] MEAN CELL VOLUME 88.4 fl 80-96 [facility] MEAN CORPUSCULAR HEMOGLOBIN 30.1 pg 27.0-31.0 [facility] MEAN CORPUSCULAR HGB CONC 34.1 g/dl 32.0-36.0 [facility] RED CELL DISTRIBUTION WIDTH 12.6 % 10.0-14.5 [facility] PLATELET COUNT 218 K/mm3 172-450 [facility] MEAN PLATELET VOLUME 8.8 fl 9.0-13.[address] [facility] pital GRAN % 54.8 % 50-80.0 [facility] IG% 0.2 % 0.0-0.2 [facility] LYMPH % 35.0 % 25.0-50.0 [facility] MONO % 8.3 % 2.0-10.0 [facility] EOS % 1.1 % 0-5.0 [facility] BASO % 0.6 % 0.0-2.0 [facility] GRAN # 2.6 K/mm3 2.0-8.00 [facility] IG# 0.0 K/mm3 0.0-0.2 [facility] LYMPH # 1.7 K/mm3 1.0-5.0 [facility] MONO # 0.4 K/mm3 0.10-1.20 [facility] EOS # 0.1 K/mm3 0.0-0.5 [facility] BASO # 0.0 K/mm3 0.0-0.2 [facility] Procedure Social History No Information Vital Signs ID Date Data Source UNK Name Value Range Interpretation Code Description Data Source(s) Diastolic blood pressure 87 mm[Hg] 87 mm[Hg] LAZ ([facility]) Body height 69 [in_i] 69 [in_i] LAZ ([facility]) Body mass index (BMI) [Ratio] 33 kg/m2 33 kg/ m2 LAZ ([facility]) Systolic blood pressure 147 mm[Hg] 147 mm[Hg] A JASMIN ([facility]) Body weight 3571 [oz_av] 3571 [oz_av] LAZ ([facility]) Diastolic blood pressure 87 mm[Hg] 87 mm[Hg] LAZ ([facility]) Body height 69 [in_i] 69 [in_i] LAZ ([facility]) Body mass index (BMI) [Ratio] 33 kg/m2 33 kg/ m2 LAZ ([facility]) Systolic blood pressure 147 mm[Hg] 147 mm[Hg] A JASMIN ([facility]) Body weight 3571 [oz_av] 3571 [oz_av] LAZ ([facility]) Diastolic blood pressure 70 mm[Hg] 70 mm[Hg] ALZ ([facility]) Body height 69 [in_i] 69 [in_i] LAZ ([facility]) Body mass index (BMI) [Ratio] 32.8 kg/m2 32.8 k g/m2 LAZ ([facility]) Systolic blood pressure 117 mm[Hg] 117 mm[Hg] A JASMIN ([facility]) Body weight 3555.2 [oz_av] 3555.2 [oz_av] ATHEN A ([facility]) Diastolic blood pressure 70 mm[Hg] 70 mm[Hg] LAZ ([facility]) Body height 69 [in_i] 69 [in_i] LAZ ([facility]) Body mass index (BMI) [Ratio] 32.8 kg/m2 32.8 k g/m2 LAZ ([facility]) Systolic blood pressure 117 mm[Hg] 117 mm[Hg] A SANGA ([facility]) Body weight 3555.2 [oz_av] 3555.2 [oz_av] ATHEN A ([facility]) Diastolic blood pressure 70 mm[Hg] 70 mm[Hg] LAZ ([facility]) Body height 69 [in_i] 69 [in_i] LAZ ([facility]) Body mass index (BMI) [Ratio] 32.8 kg/m2 32.8 k g/m2 LAZ ([facility]) Systolic blood pressure 117 mm[Hg] 117 mm[Hg] A [facility] ([facility]) Body weight 3555.2 [oz_av] 3555.2 [oz_av] ATHEN A ([facility]) Diastolic blood pressure 70 mm[Hg] 70 mm[Hg] LAZ ([facility]) Body height 69 [in_i] 69 [in_i] LAZ ([facility]) Body weight 3555.2 [oz_av] 3555.2 [oz_av] ATHEN A ([facility]) Body mass index (BMI) [Ratio] 32.8 kg/m2 32.8 k g/m2 LAZ ([facility]) Systolic blood pressure 117 mm[Hg] 117 mm[Hg] A [facility] ([facility])
== END 2021-04-15 08:12 | disposition left against medical advice (07) ==
LOC: M ED 06:37
DX: Z53.21 Procedure and treatment not carried out due to patient leaving prior to being seen by health care provider (principal)

== ENCOUNTER → 2022-04-12 | Outpatient (CLI) | payer OTHER ==
[~2022-04-12] MED LIST: LEVO50TA5 PO; ROSU10TA6 PO
== END ==
LOC: M LABSMTC 10:16
PROVIDERS: ATTEND Anesthesiology
DX: Z01.812 Encounter for preprocedural laboratory examination (principal); Z11.52 Encounter for screening for COVID-19

== ENCOUNTER 2022-04-17 09:44 | Day surgery (SDC) | payer OTHER ==
[~2022-04-17] VITALS: Ht 175.3 cm; Wt 112.4 kg
[~2022-04-17 09:44] MED LIST changes: +NS 1,000 ML IV ONE
[2022-04-17] MEDS ORDERED: LIDOCAINE 2% INJ 100 MG/5 ML SYRINGE As Ordered ONE (11:24)
[2022-04-17] MEDS ORDERED: fentaNYL 100 MCG/2 ML INJECTION As Ordered ONE (11:24)
[2022-04-17] MEDS ORDERED: propofoL 500 MG/50 ML VIAL As Ordered ONE (11:24)
[2022-04-17 12:30] VITALS: BP 137/83
== END 2022-04-17 13:04 | disposition home or self-care (01) ==
LOC: M OPP 09:44
PROVIDERS: ATTEND Internal Medicine Gastroenterology
DX: K63.5 Polyp of colon (principal); K52.9 Noninfective gastroenteritis and colitis, unspecified; K57.30 Diverticulosis of large intestine without perforation or abscess without bleeding; K64.8 Other hemorrhoids; K29.70 Gastritis, unspecified, without bleeding; E03.9 Hypothyroidism, unspecified; K21.9 Gastro-esophageal reflux disease without esophagitis; F32.A Depression, unspecified; F17.210 Nicotine dependence, cigarettes, uncomplicated; Z79.890 Hormone replacement therapy; Z79.899 Other long term (current) drug therapy
CPT/HCPCS: 43239; 45380; 45385; 88305; J3010

== ENCOUNTER 2022-11-29 15:27 | Emergency (ER) | payer OTHER ==
[~2022-11-29] VITALS: Ht 177.8 cm; Wt 119.4 kg
[~2022-11-29 15:27] MED LIST changes: -NS 1,000 ML IV ONE
[2022-11-29 18:07] LABS: BASO # 0.1 10^3/uL (0.0-0.2); EOS # 0.2 10^3/uL (0.0-0.5); EOS % 2.3 % (0.0-3.0); HEMATOCRIT 40.2 % (42.0-52.0); HEMOGLOBIN 13.2 g/dl (13.5-17.5); LYMPH # 2.1 10^3/uL (1.5-5.0); LYMPH % 28.5 % (24.0-44.0); MEAN CORPUSCULAR HEMOGLOBIN 29.6 pg (27.0-33.0); MEAN CORPUSCULAR HGB CONC 32.8 g/dl (32.0-36.5); MEAN CORPUSCULAR VOLUME 90.1 fl (80.0-96.0); MONO # 0.8 10^3/uL (0.0-0.8); MONO % 10.5 % (2.0-8.0); NEUTROPHILS # 4.1 10^3/uL (1.5-8.5); NEUTROPHILS % 56.2 % (36.0-66.0); PLATELET COUNT, AUTOMATED 288 10^3/uL (150-450); RED BLOOD COUNT 4.46 10^6/uL (4.30-6.10); WHITE BLOOD COUNT 7.3 10^3/uL (4.0-10.0)
[2022-11-29] MEDS ORDERED: PROHANCE 279.3MG/ML 5ML VIAL As Ordered ONE (18:16)
[2022-11-29] MEDS ORDERED: PROHANCE 279.3MG/ML 15ML VIAL As Ordered ONE (18:17)
[2022-11-29 18:39] LABS: FREE T4 0.97 NG/DL (0.89-1.76); THYROID STIMULATING HORMONE 10.795 uIU/ML (0.55-4.78)
[2022-11-29] MEDS ORDERED: ACETAMINOPHEN 500 MG TAB PO ONE (20:30)
[2022-11-29] MEDS ORDERED: KETOROLAC 30 MG/ML 1ML VIAL IV ONE (20:35)
[2022-11-29] MEDS ORDERED: METOCLOPRAMIDE INJ 10MG/2ML VIAL IV ONE (20:35)
[2022-11-29 21:20] VITALS: BP 161/91; TEMP 98; O2SAT 99
== END 2022-11-29 21:34 | disposition home or self-care (01) ==
LOC: M ED 15:27
DX: R51.9 Headache, unspecified (principal); R20.2 Paresthesia of skin; E78.5 Hyperlipidemia, unspecified; E03.9 Hypothyroidism, unspecified; K57.92 Diverticulitis of intestine, part unspecified, without perforation or abscess without bleeding; F17.200 Nicotine dependence, unspecified, uncomplicated; Z79.899 Other long term (current) drug therapy
CPT/HCPCS: 70553; 80047; 84439; 84443; 85025; 93005; 96374; 96375; 99285; A9576; J1885; J2765